=== PATIENT | female | born 1955 | race Caucasian/White ===

== ENCOUNTER 2018-04-22 08:37 | Outpatient (CLI) | payer OTHER, SELFPAY ==
[2018-04-22 08:51] VITALS: BP 107/68; PULSE 72; RESP 18; TEMP 36.2; O2SAT 99
[2018-04-22] MEDS: methylPREDNISolone ACETATE 80 MG/ML VIAL IJ (09:29)
[2018-04-22] MEDS: Omnipaque 240 MG/ML 50 ML BTL IJ (09:29)
--- NOTE | 2018-04-22 09:29 | DI.REPORT_ITS ---
SYMPTOM/DIAGNOSIS: SACROILIAC JOINT INJECTION, SACROILIAC JOINT DYSFUNCTION C-ARM: Fluoroscopy Time: 92.1 sec 13.79 mGy Fluoroscopy was utilized by Dr. Jimenez during the performance of a left sacroiliac joint injection. Please refer to the procedure report for complete details.
--- NOTE | 2018-04-22 09:32 | PDOC.PAIN_ITS ---
Pain Clinic Procedure Note Patient Problems: Current Active Problems Problem Status Onset Sacroiliac joint dysfunction of left side Chronic INTRA-ARTICULAR SI JOINT INJECTION YAMIL SIMMONS has been referred to the [facility] for intra- articular SI joint injection. COMMENTS: Left low back pain over sacrum Patient was interviewed and the medical record reviewed. There were no medical , pharmacologic, radiographic or other structural contraindications to attempting fluoroscopically guided intra-articular SI joint injection. Risks and expected side effects as well as potential benefit of the procedure were reviewed and voiced concerns addressed. The printed consent form was signed and witnessed. Standard time-out procedure was performed. Patient was placed in the prone position on the fluoroscopy table and automated blood pressure cuff and pulse oximeter applied. The skin entry point for approaching {left} SI joints was identified under the most advantageous fluoroscopic view and marked. Following thorough Chlorhexadine preparation of the skin and draping and 1% lidocaine infiltration of the skin entry point and subcutaneous tissues, a 22 gauge spinal needle was placed under fluoroscopic guidance into {/left/} SI joints was identified under the most advantageous fluoroscopic view and marked. Following thorough Chlorhexadine preparation of the skin and draping and 1% lidocaine infiltration of the skin entry point and subcutaneous tissues, a 22 gauge spinal needle was placed under fluoroscopic guidance into {/left/} SI joint. Intra-articular placement was confirmed by a clear arthrogram resulting from the injection of 0.25ml Omnipaque 240, 1ml 0.5% bupivacaine, and half ml (40mg) of 80mg concentration Depomedrol were injected intra- articularily with an initial reproduction of a significant component of the usual pain. Vital signs were stable throughout the procedure and were as recorded in the docflowsheet by the nursing staff. If given, dosages of intravenous drugs for anxiolysis and analgesia were documented in MAR. Follow up plans and appointments were discussed with the patient. Post procedure instruction was given as documented in nursing documentation and having met discharge criteria, and was discharged from the [facility]. COMMENTS: Pain went from 2/10-0/10. She will follow-up as needed. Consider repeating on the right side. Was difficult access. CC: JUANITO FIGUEROA
[2018-04-22] MEDS: Bupivacaine 0.5% Pres-Free 30 ML VIAL IJ (09:36)
[2018-04-22 09:37] VITALS: BP 109/64; PULSE 86; RESP 16; O2SAT 99
== END 2018-04-22 08:38 ==
PROVIDERS: PCP Internal Medicine; Visit Provider Anesthesiology Pain Medicine
DX: M53.3 Sacrococcygeal disorders, not elsewhere classified (principal); G89.29 Other chronic pain
CPT/HCPCS: 27096; 72200; J1040; Q9967

== ENCOUNTER 2018-07-01 09:13 | Outpatient (CLI) | payer OTHER, SELFPAY ==
--- NOTE | 2018-07-01 06:00 | DI.RAD_ITS ---
SYMPTOM/DIAGNOSIS: LUMBAR RADICULOPATHY C-ARM: Fluoroscopy Time: 11.1sec,1.45mgy Fluoroscopy was utilized by Dr. Jimenez during treatment for lumbar radiculopathy. Please refer to the procedure report for complete details.
[2018-07-01 09:32] VITALS: PULSE 86; RESP 16; TEMP 36.6; O2SAT 100
[2018-07-01 10:08] VITALS: BP 136/67; PULSE 86; RESP 21; O2SAT 100
--- NOTE | 2018-07-01 10:09 | PDOC.PAIN_ITS ---
Pain Clinic Procedure Note Current Active Problems Problem Status Onset Lumbosacral spondylosis without myelopathy Chronic EPIDURAL STEROID WITH CATHETER INJECTION PROCEDURE NOTE COMMENTS: Patient had a sacroiliac joint injection on the left which gave her no relief. She has disc bulge at L4-5. YAMIL SIMMONS has been referred to the [facility] for lumbar epidural steroid injection. Patient was greeted by the nurse who verified patients name and . Patient was then taken to the fluoroscopy suite. Patient was interviewed and the medical record reviewed. There were no medical , pharmacologic, radiographic, or other structural contraindications to attempting fluoroscopically guided lumbar epidural steroid injection. Risks and expected side effects as well as potential benefits of the procedure were reviewed and voiced concerns addressed. The patient consent form was signed and witnessed. Standard time-out procedure was performed. Patient was placed in the prone position on the fluoroscopy table and automated blood pressure cuff and pulse oximeter applied. The skin entry point for entering/approaching the epidural space by a {L4-5} and marked. Following thorough chlorhexadine preparation of the skin and draping and 1% lidocaine infiltration of the skin entry point and subcutaneous tissues, a 17 gauge Touhy needle was placed under fluoroscopic guidance and with loss of resistance technique into the epidural space. Needle tip placement and depth were aided and confirmed by fluoroscopy. There was no paresthesia or return of blood or CSF through the needle. An Arrow cath was thread to the {left} and 1 cc's of Omnipaque 240 was injected with clear epidural spread confirmed with fluoroscopy. 80mg depomedrol was injected. There was not any unusual discomfort expressed. Vital signs were stable throughout the procedure and were as recorded in nursing records. Follow up plans and appointments were discussed.Post procedure instruction was given as documented in nursing records and having met discharge criteria and was discharged from the [facility]. COMMENTS: Follow-up as needed. Consider medial branch blocks pain mostly axial
[2018-07-01] MEDS: methylPREDNISolone ACETATE 40 MG/ML VIAL IJ (10:10)
[2018-07-01] MEDS: Omnipaque 240 MG/ML 50 ML BTL IJ (10:10)
== END 2018-07-01 09:33 ==
PROVIDERS: PCP Internal Medicine; Visit Provider Anesthesiology Pain Medicine
DX: M47.816 Spondylosis without myelopathy or radiculopathy, lumbar region (principal); G89.29 Other chronic pain
CPT/HCPCS: 62323; 72100; J1030; Q9967